=== PATIENT | female | born 1975 | race Caucasian/White ===

== ENCOUNTER 2020-02-01 07:55 | Inpatient (IN) | payer BC ==
[2020-01-28 10:24] LABS: BASOPHILS # (AUTO) 0.1 (0.0-0.1); BASOPHILS % 0.7 % (0.0-1.0); EOSINOPHILS # (AUTO) 0.1 (0.0-0.4); EOSINOPHILS % 1.3 % (0.0-6.0); HEMATOCRIT 41.1 % (34.2-44.1); HEMOGLOBIN 13.2 g/dL (12.0-16.0); LYMPHOCYTES # (AUTO) 3.1 (1.0-3.2); LYMPHOCYTES % 34.4 % (18.0-39.1); MEAN CORPUSCULAR HEMOGLOBIN 28.2 pg (28-32); MEAN CORPUSCULAR HGB CONC 32.1 g/dL (31-35); MEAN CORPUSCULAR VOLUME 87.8 fL (81-99); MONOCYTES # (AUTO) 0.6 (0.2-0.8); MONOCYTES % 6.8 % (4.4-11.3); NEUTROPHILS # (AUTO) 5.1 (2.1-6.9); NEUTROPHILS % 56.6 % (38.7-80.0); PLATELET COUNT 383 x10e3/uL (140-360); RED BLOOD COUNT 4.68 x10e6/uL (3.6-5.1)
[2020-01-28 10:33] LABS: ANION GAP 16.6 mmol/L (8-16); CALCIUM 9.8 mg/dL (8.4-10.2); CARBON DIOXIDE 24 mmol/L (22-29); CHLORIDE 102 mmol/L (98-107); CREATININE, SERUM 0.81 mg/dL (0.57-1.11); EST GLOMERULAR FILTRATION RATE > 60 ML/MIN (60-); GLUCOSE 103 mg/dL (74-118); POTASSIUM 3.6 mmol/L (3.5-5.1); SODIUM 139 mmol/L (136-145)
[2020-01-28 10:58] LABS: BLOOD UREA NITROGEN 14 mg/dL (7-26); BUN/CREATININE RATIO 17 (6-25)
[~2020-02-01] VITALS: Ht 162.6 cm; Wt 103.9 kg
[~2020-02-01 07:55] MED LIST: ADDERALL 20 MG20 MG PO; SCOPOLAMINE 1.5 MG PATCH TOP SCH; TRIAMTERENE-HC1 EAC2 PO
[2020-02-01] MEDS ORDERED: CEFAZOLIN SOD 1 GM/NS 50ML 100 ML IV ONE (08:29)
[2020-02-01] MEDS ORDERED: BUPIVACAINE 0.25% 30ML SDV INJ ONE (10:43)
[2020-02-01] MEDS ORDERED: SCOPOLAMINE 1.5 MG PATCH ONE (12:34)
[2020-02-01] MEDS ORDERED: FENTANYL CITRATE/PF 100MCG/2 ML INJ ONE (14:09)
[2020-02-01] MEDS ORDERED: MIDAZOLAM HCL 2 MG/2 ML VIAL ONE (14:09)
--- NOTE | 2020-02-01 14:19 | NUR ---
RECEIVED PATIENT FROM PACU. PATIENT A/O X3, EVEN RESPIRATIONS ON 2LNC. LUNG SOUNDS CLEAR. 5 TROCAR SITES TO ABDOMEN C/D/I. LEFT FA 20 GAUGE IV WITH NS @ 125 CC/HR. SCD'S BILATERAL. PATIENT HAS VOIDED SINCE SURGERY. CALL LIGHT IN REACH, BED LOW, WHEELS LOCKED, SIDE RAILS X2. CALL LIGHT IN REACH WILL CONTINUE TO MONITOR PATIENT.
--- NOTE | 2020-02-01 14:32 | Operative Report ---
DATE OF PROCEDURE: 02/01/2020 SURGEON: Zackery Rodriguez MD PREOPERATIVE DIAGNOSES: 1. Morbid obesity, BMI 43. 2. Hypertension. POSTOPERATIVE DIAGNOSES: 1. Morbid obesity, BMI 43. 2. Hypertension. PREOPERATIVE INDICATION: Treat disease, prevent complications related to comorbid conditions of obesity. PROCEDURE: Laparoscopic vertical sleeve gastrectomy. ANESTHESIA: General. ELECTRICAL ENGINEERING DIRECTOR: Ronald Mcmanus, surgical services assistant (needed due to complexity of case). FLUIDS: 600 mL of crystalloid. ESTIMATED BLOOD LOSS: 30 mL. DRAINS: None. COMPLICATIONS: None. SPECIMENS: Partial stomach. GRAFTS: None. FINDINGS: 1. Normal upper GI anatomy. 2. Negative intraoperative leak test. PROCEDURE IN DETAIL: The patient was brought to the operating room and was intubated under general endotracheal anesthesia. She was positioned supine with both arms abducted. All pressure points were appropriately padded. She was sterilely prepped and draped in the usual fashion. A preprocedure pause was performed identifying the patient, use of preop antibiotics, intended procedure, and staff surgeon. Access was gained via a 5 mm left subcostal incision using a Veress needle. Abdomen was insufflated. Four additional trocars were placed in standard position. A liver retractor was used to expose the stomach. The greater curvature of the stomach was mobilized using the [place] LigaSure device from 4 cm proximal to the pyloric valve to the left sailaja of the diaphragm. Posterior patterns were also lysed carefully. We then had anesthesia inserted a 32-Jamaican bougie to the lesser curvature of stomach. The greater curvature of stomach was resected with five firings of purple load with 60 mm stapling device. We did a leak test by submerging the sleeve under saline, no leaks were identified. Bougie was removed. The staple line appeared hemostatic. We then removed the liver retractor and desufflated the abdomen, removed the trocars. We removed the specimen through the right periumbilical port site. The port site was closed with 0 Vicryl using a Alex Yumi technique in interrupted fashion. The incision sites were closed with 4-0 Monocryl suture in a subcuticular fashion. Dermabond dressings were applied. A 0.25% bupivacaine was used both at the preperitoneal incision site. The patient tolerated the procedure well. Type of wound was type 2, clean, contaminate. All surgical sponge and instruments counts were correct. MD HIREN Magana/TIERRA /[id number]
[2020-02-01] MEDS ORDERED: SEVOFLURANE INHAL SOLN 250 ML PEN BTL ONE (14:44)
[2020-02-01] MEDS ORDERED: NEOSTIGMINE 1 MG/ML 10ML VIAL ONE (14:44)
[2020-02-01] MEDS ORDERED: ROCURONIUM BROMIDE 10 MG/ML 5ML VIAL IV ONE (14:44)
[2020-02-01] MEDS ORDERED: GLYCOPYRROLATE INJ 0.2 MG/ML VIAL ONE (14:44)
[2020-02-01] MEDS ORDERED: DEXAMETHASONE SOD PHOS INJ 4 MG/ML VIAL ONE (14:44)
[2020-02-01] MEDS ORDERED: ACETAMINOPHEN 1000 MG/100 ML IV ONE (14:44)
[2020-02-01] MEDS ORDERED: PROPOFOL IV EMULSION 10 MG/ML 20 ML VIAL ONE (14:44)
[2020-02-01] MEDS ORDERED: ONDANSETRON HCL INJ 2MG/ML 2ML 2 MG/ML VIAL ONE (14:44)
[2020-02-01 15:29] VITALS: BP 112/68
--- NOTE | 2020-02-01 15:38 | History and Physical ---
CHIEF COMPLAINT: I had weight loss surgery. HISTORY OF PRESENT ILLNESS: This is a 44-year-old white woman, who was admitted to [facility] with diagnosis of obesity and BMI complicating on hypertension. Today, the patient underwent successful laparoscopic sleeve gastrectomy that was performed by Dr. Zackery Rodriguez. The patient tolerated the surgery quite well. The patient states this time she does have some abdominal discomfort as well as nausea, but denies any vomiting. The patient denies any belching or flatus since surgery. The patient had blood work done on January 28, 2020. Basic metabolic profile with complete blood count were completely normal. The patient's hemoglobin was 13.2 g/dL. White blood cell count was 9000 with 56% segmented neutrophils. REVIEW OF SYSTEMS: GENERAL: Weight has stable. No fever or chills. HEENT: No headaches. No visual changes. CARDIOVASCULAR/RESPIRATORY: No chest pain. No short of breath or cough. GI: Complains of nausea, but no vomiting. Complains of slight abdominal discomfort. Denies any eructation or flatus since surgery. : Garrido catheter has been removed. NEUROMUSCULAR: She denies any limb weakness or numbness. ALLERGIES: NO KNOWN DRUG ALLERGIES. PAST MEDICAL HISTORY: 1. Hypertension. 2. Obesity, BMI 39. FAMILY HISTORY: Father has hypertension. SOCIAL HISTORY: This woman is , lives with . The patient does not work outside the house. She denies any tobacco use. The patient drinks alcohol socially. HOME MEDICATIONS: 1. Amphetamine/dextroamphetamine 20 mg once daily. 2. Triamterene/hydrochlorothiazide 37.5/25 mg once daily. SURGICAL HISTORY: 1. Laparoscopic cholecystectomy in 2003. 2. Laparoscopic vertical sleeve gastrectomy today. PHYSICAL EXAMINATION: GENERAL: She is somnolent, but arousable. Her is at bedside. She is pleasant, cooperative on exam. Does not appear to be in any obvious distress. VITAL SIGNS: Height 5 feet 4 inches, weight is 230 pounds, BMI 39, blood pressure is currently 118/76, pulse 80, respiratory rate of 16, oxygen saturation 95% on room air, temperature 98.9. INTEGUMENT: Skin is warm and dry. No pallor, jaundice or diaphoresis. HEENT: Anicteric sclerae. Moist mucous membranes. NECK: Supple. CARDIOVASCULAR: Regular rate and rhythm. LUNGS: No rales. No rhonchi. No wheezes. ABDOMEN: Soft. Her laparoscopic incisions are sealed with Dermabond. They are clean, dry, and intact. No drainage appreciated. No bowel sounds are auscultated. EXTREMITIES: No edema or deformity. She is currently wearing sequential compression devices in her lower legs. NEUROLOGIC: Intact. DIAGNOSES: 1. Obesity, BMI 39, complicating underlying hypertension. 2. Hypertension. 3. Status post laparoscopic vertical sleeve gastrectomy. PLAN: 1. Gentle intravenous fluids. 2. Encourage incentive spirometer usage to prevent atelectasis. 3. Pain control. 4. We will start enoxaparin to prevent deep venous thrombosis and pulmonary embolism. 5. Restart diuretics tomorrow. 6. We will not restart amphetamine/dextroamphetamine, this medication can raise her blood pressure. 7. Mobilize patient via ambulation. 8. I would like to thank Dr. Zackery Rodriguez for involving me in the care of this patient. I spent 40 minutes in the care of this patient. MD BERNIE [facility]/TIERRA /[id number] MTDD
[2020-02-01] MEDS: SODIUM CHLORIDE 0.9% 1000ML 1,000 ML IV SCH ×2 (15:45→15:48)
[2020-02-01] MEDS: MORPHINE SULFATE 2 MG/ML SYR 1ML IV PRN ×2 (15:55→20:54)
[2020-02-01] MEDS: ONDANSETRON HCL INJ 2MG/ML 2ML 2 MG/ML VIAL IV PRN (15:55)
[2020-02-01 16:00] VITALS: BP 106/64
--- NOTE | 2020-02-01 17:46 | NUR ---
Nutrition Screen Note RD Recommendation for Physician: -Recommend advancing to bariatric diet when medically appropriate Plan of Care: RD following, monitoring for tolerance and adequacy Nutrition reason for involvement: MD consult Bariatric diet education Primary Diagnose(s): laparoscopic sleeve gastrectomy surgery PMH: Hypertension, Obesity Ht: 64 in Wt:229 lb BMI: 39.3 kg/m2 IBW:[address] Assessment: (02/01/20) Chart reviewed. Labs and meds reviewed. Pt is a 44 year old female admitted for laparoscopic sleeve gastrectomy surgery. Pt stated she had lost weight and used to weigh 249 lbs. Pt currently has a weight of 229 lbs. No appetite changes reported prior to admission. Provided pt with bariatric diet education materials. Will continue to monitor. Current Diet: NPO Malnutrition Evaluation (02/01/20) The patient does not meet criteria for a specified degree of malnutrition at this time. Will re-evaluate at follow-up as appropriate. Diet Education Needs Assessment: Pt was not interested in verbal education at time of visit. Provided pt with written materials regarding following a bariatric diet. Encouraged pt to contact RD if she has questions. Nutrition Care Level: low Signed: Mary Cabrera, RD, LD
[2020-02-01 20:00] VITALS: BP 129/77
[2020-02-01] MEDS: ENOXAPARIN SOD INJ 40 MG/0.4 ML SYR SC SCH (20:54)
[2020-02-02] VITALS: BP 106/73
[2020-02-02] MEDS: ONDANSETRON HCL INJ 2MG/ML 2ML 2 MG/ML VIAL IV PRN (02:32)
[2020-02-02] MEDS: MORPHINE SULFATE 2 MG/ML SYR 1ML IV PRN ×2 (02:32→12:01)
[2020-02-02 04:00] VITALS: BP 122/73
[2020-02-02 05:56] LABS: BASOPHILS % 0.2 % (0.0-1.0); HEMATOCRIT 43.4 % (34.2-44.1); HEMOGLOBIN 13.5 g/dL (12.0-16.0); LYMPHOCYTES # (AUTO) 1.6 (1.0-3.2); LYMPHOCYTES % 8.4 % (18.0-39.1); MEAN CORPUSCULAR HEMOGLOBIN 28.3 pg (28-32); MEAN CORPUSCULAR HGB CONC 31.1 g/dL (31-35); MONOCYTES # (AUTO) 0.9 (0.2-0.8); MONOCYTES % 4.6 % (4.4-11.3); NEUTROPHILS # (AUTO) 15.9 (2.1-6.9); NEUTROPHILS % 86.3 % (38.7-80.0); PLATELET COUNT 295 x10e3/uL (140-360); RED BLOOD COUNT 4.77 x10e6/uL (3.6-5.1); RED CELL DISTRIBUTION WIDTH 12.9 % (11.7-14.4)
[2020-02-02] MEDS: SODIUM CHLORIDE 0.9% 1000ML 1,000 ML IV SCH ×2 (06:12→07:45)
[2020-02-02 06:24] LABS: ALANINE AMINOTRANSFERASE 43 IU/L (0-55); ALBUMIN 3.9 g/dL (3.5-5.0); ALKALINE PHOSPHATASE 81 IU/L (40-150); BLOOD UREA NITROGEN 9 mg/dL (7-26); BUN/CREATININE RATIO 13 (6-25); CALCIUM 9.2 mg/dL (8.4-10.2); CARBON DIOXIDE 18 mmol/L (22-29); CHLORIDE 106 mmol/L (98-107); CREATININE, SERUM 0.72 mg/dL (0.57-1.11); EST GLOMERULAR FILTRATION RATE > 60 ML/MIN (60-); GLUCOSE 99 mg/dL (74-118); PHOSPHORUS 2.4 MG/DL (2.3-4.7); SODIUM 139 mmol/L (136-145)
--- NOTE | 2020-02-02 07:00 | NUR ---
RECEIVED PATIENT AWAKE RESTING IN BED NO S/S OF DISTRESS. BED LOW, WHEELS LOCKED, SIDE RAILS X2. CALL LIGHT IN REACH WILL CONTINUE TO MONITOR PATIENT.
[2020-02-02] MEDS ORDERED: HYDROCODONE/APAP 7.5MG-325MG 1 EA TAB PO PRN (07:45)
[2020-02-02 08:20] VITALS: BP 124/66
--- NOTE | 2020-02-02 08:24 | NUR ---
S: No major complaints O: AF, VSS General- no distress Abd- soft, incisions clean, dry and intact A/P: POD 1, s/p Lap sleeve gastrectomy -Clears, ambulate, IS, OOB to chair -DC Home today -Diet and f/u instructions given to patient
[2020-02-02] MEDS: ENOXAPARIN SOD INJ 40 MG/0.4 ML SYR SC SCH (08:51)
--- NOTE | 2020-02-02 09:05 | NUR ---
PATIENT TOLERATED BREAKFAST NO VOMITING OR NAUSEA PRESENT.
[2020-02-02 09:24] VITALS: BP 124/66
--- NOTE | 2020-02-02 09:26 | NUR ---
Dictated DC summary: [id number]
[2020-02-02] MEDS ORDERED: TYLENOL WITH C1 EACH PO (09:58)
[2020-02-02] MEDS ORDERED: ZOFRAN4 MG PO (09:59)
--- NOTE | 2020-02-02 10:26 | Discharge Summary ---
ADMITTING DIAGNOSES: 1. Obesity, BMI 39, complicating underlying hypertension. 2. Hypertension. DISCHARGE DIAGNOSES: 1. Status post laparoscopic vertical sleeve gastrectomy. 2. Obesity, BMI 39, complicating underlying hypertension. 3. Hypertension. HOSPITAL COURSE: This is a 44-year-old white woman, who was initially admitted to [facility] with diagnosis of obesity, BMI 39 complicating underlying hypertension. The patient underwent laparoscopic vertical sleeve gastrectomy during this hospitalization, which she tolerated quite well. The surgery was performed by Dr. Zackery Rodriguez. On discharge, she was tolerating a clear liquid diet. However, on discharge, her white blood cell count did increase to 18,400 with 86% segmented neutrophils, but she was voicing no complaints. The patient denied any upper respiratory infection type symptoms as well as any cough or congestion. She also denies any urinary tract infection type symptoms. The patient was not experiencing any nausea, vomiting, or diarrhea on discharge. On discharge, she was belching, but no flatus. She also adamantly denied any abdominal pain on discharge. On discharge, potassium was 4.0, BUN and creatinine were 9 and 0.72 respectively. AST and ALT were 37 and 43 respectively. Serum bicarbonate was slightly low at 18. Once again, the patient voiced no complaints on discharge. CONDITION ON DISCHARGE: Stable. DISCHARGE MEDICATIONS: 1. Tylenol No. 3 one tablet every 4 hours p.r.n. pain, 30 prescribed, no refills. 2. Zofran 4 mg one tablet every 6 hours p.r.n. nausea and vomiting, 20 pills prescribed, no refills. The patient was told to stop amphetamine/dextroamphetamine as well as triamterene/hydrochlorothiazide. FOLLOWUP INSTRUCTIONS: The patient was instructed to follow up with Dr. Zackery Rodriguez in one week and with her primary care physician in 2 weeks. As previously stated, the patient was instructed to follow up with her primary care physician in 2 weeks. During that visit it was highly recommended to the patient that she undergo a repeat complete blood count and comprehensive metabolic profile, which will be ordered by her primary care doctor. MD BERNIE [facility]/TIERRA /[id number] cc: Zackery Rodriguez MD MTDD
[2020-02-02] MEDS ORDERED: ONDANSETRON HCL 4 MG ORAL DISINTEGRATING TAB PO PRN (11:00)
[2020-02-02 11:55] VITALS: BP 124/64
--- NOTE | 2020-02-02 12:05 | NUR ---
removed patients iv. catheter tip intact and pressure dressing applied.
--- NOTE | 2020-02-02 12:25 | NUR ---
patient discharged from facility. patient gathered all personal belongings, discharge instructions and follow up information. Left unit in wheelchair and went home via private auto. No s/s of distress leaving facility.
== END 2020-02-02 12:30 | disposition home or self-care (01) | DRG 621 ==
LOC: OR 07:55 → PACU V 13:43 → MED/SURG 14:32
PROVIDERS: ADMIT Internal Medicine; ATTEND Internal Medicine
PROC: 0DB64Z3 Excision of Stomach, Percutaneous Endoscopic Approach, Vertical (ICD-10-PCS; principal; 2020-02-01 10:30)
DX: E66.01 Morbid (severe) obesity due to excess calories (principal); Z68.39 Body mass index [BMI] 39.0-39.9, adult; I10 Essential (primary) hypertension; Z11.59 Encounter for screening for other viral diseases; Z90.49 Acquired absence of other specified parts of digestive tract
CPT/HCPCS: 36415; 80048; 80053; 81025; 83735; 84100; 85025; 87635; 93005; J0690; J1100; J1650; J2250; J2270; J2405; J2710; J3010; J7030

== ENCOUNTER → 2020-04-15 | Outpatient (CLI) | payer BC ==
[~2020-04-15] MED LIST changes: -SCOPOLAMINE 1.5 MG PATCH TOP SCH; +TYLENOL WITH C1 EACH PO; +ZOFRAN4 MG PO
== END ==
LOC: MAMMO 12:48
PROVIDERS: ATTEND Family Medicine
DX: Z12.31 Encounter for screening mammogram for malignant neoplasm of breast (principal)
CPT/HCPCS: 77067

== ENCOUNTER → 2020-05-16 | Outpatient (CLI) | payer BC | LOC: MAMMO 10:38 | PROVIDERS: ATTEND Family Medicine | DX: N64.89 Other specified disorders of breast (principal) ==

== ENCOUNTER → 2021-06-07 | Outpatient (CLI) | payer BC | LOC: MAMMO 12:40 | PROVIDERS: ATTEND Family Medicine | DX: Z12.31 Encounter for screening mammogram for malignant neoplasm of breast (principal) | CPT/HCPCS: 77067 ==